=== PATIENT | male | born 1955 | race Caucasian/White ===

== ENCOUNTER 2017-02-13 13:06 | Day surgery (SDC) | payer OTHER ==
[~2017-02-13] VITALS: Ht 175.3 cm; Wt 90.9 kg
[~2017-02-13 13:06] MED LIST: ALBU2.5V4 INHALATION; ALBU8.5H2 INHALATION; CYCL10TA9 PO; CeFAZolin Inj 2 GM in IV Premix 1 EACH IV ONE; IBUP800T28 PO; LISI-567 PO; Lactated Ringer's 1,000 ML IV ONE; METO-272 PO; OMEP20CA11 PO; OXYC1TAB24 PO; SIMV80TA4 PO; TIOT4MIS5 IH; TRAM50TA2 PO
[2017-02-13] MEDS ORDERED: MeTOProlol 1 mg/mL 5 mL Inj ONE (13:07)
[2017-02-13] MEDS ORDERED: Propofol 10,000 mCg/mL 20 mL Inj ONE (13:07)
[2017-02-13] MEDS ORDERED: Dexamethasone 4 mg/mL Inj ONE (13:07)
[2017-02-13] MEDS ORDERED: fentaNYL-PF 50 mCg/mL 2 mL Inj ONE (13:07)
[2017-02-13] MEDS ORDERED: Ondansetron 2 mg/mL 2 mL Inj ONE (13:07)
[2017-02-13] MEDS ORDERED: CeFAZolin Inj 2 gm / 50mL D5W IV ONE (13:19)
[2017-02-13 13:36] VITALS: BP 156/84; PULSE 87; RESP 16; O2SAT 97
[2017-02-13] MEDS ORDERED: Bupivacaine-MPF 0.5% 30 mL Inj INFILTRATE ONE (16:10)
[2017-02-13] MEDS ORDERED: Lactated Ringer's 500 ML IV PRN (16:13)
[2017-02-13] MEDS ORDERED: Lactated Ringer's 1,000 ML IV SCH (16:13)
[2017-02-13] MEDS ORDERED: Ondansetron 2 mg/mL 2 mL Inj IVPUSH PRN (16:15)
[2017-02-13] MEDS ORDERED: HYDROmorphone 1 mg/mL Inj IVPUSH PRN (16:15)
[2017-02-13] MEDS ORDERED: Phenylephrine 10,000 mCg/mL Inj IVPUSH PRN (16:15)
[2017-02-13] MEDS ORDERED: fentaNYL-PF 50 mCg/mL 2 mL Inj IVPUSH PRN (16:15)
[2017-02-13] MEDS ORDERED: Atropine 0.4 mg/mL Inj IVPUSH PRN (16:15)
[2017-02-13] MEDS ORDERED: MetoCLOpramide 5 mg/mL 2 mL Inj IVPUSH PRN (16:15)
[2017-02-13] MEDS ORDERED: Labetalol 5 mg/mL 4 mL Inj IV PRN (16:15)
[2017-02-13] MEDS ORDERED: EPHEDrine Sulfate 50 mg/mL Inj IVPUSH PRN (16:15)
--- NOTE | 2017-02-13 16:15 | PCM.HPANE ---
Patient Data Surgeon Admitting Provider: Attending Provider:Viki Coffey MD Primary Care Physician:Nubia West Other Provider:Haseeb Bunn Anesthesia Reason for Visit Right Hydrocele Ht/WT & BMI Height (Feet): 5 Height (Inches): 9 Weight (Kilograms): 90.9 Body Mass Index 29.00 Allergies Coded Allergies: No Known Allergies (Verified Allergy, Unknown, 02/13/17) Past Anesthesia History Anesthesia History: Denies:: Abnormal Airway, Anesthesia Reactions, Difficult Intubation, Fam Anesthesia Reaction, Fam Malignant Hypertherm, Malignant Hyperthermia Diabetes History Hx Diabetes?: No MRSA MRSA: No Medications Hypertension Medication: Yes (LISINOPRIL) Home Meds Incl Beta Lluvia: Yes (METOPROLOL) Previous Beta Lluvia Dose >24: Previous Dose <24 Hours Reported Medications Albuterol HFA (Proair HFA)8.5 Gm Hfa.aer.ad2 Puffs INHALATION Q4H PRN PRN #1 INHALER 02/10/17 Tramadol 50 Mg Ycihpe21 Mg PO Q4H PRN For Pain Ref 0 02/10/17 Tiotropium Elizabeth (Spiriva Respimat)1.25 Mcg/Actuation Mist.inhal4 Gm IH DAILY 02/10/17 Simvastatin 80 Mg [id number] Mg PO HS 30 Days Ref 0 02/10/17 oxyCODONE-Acetaminophen 5-325 mg 1 Each Tablet1 Tab PO Q6H PRN For Pain Ref 0 02/10/17 Omeprazole 20 Mg Capsule.dr20 Mg PO DAILY Ref 0 02/10/17 Metoprolol Succinate ER 50 Mg Tab.er.24h50 Mg PO DAILY Ref 0 02/10/17 Lisinopril 20 Mg Cqwkzg83 Mg PO DAILY 30 Days Ref 0 02/10/17 Ibuprofen 800 Mg Ssrabm892 Mg PO TID PRN For Pain Ref 0 02/10/17 Cyclobenzaprine 10 Mg Ngmjwf08 Mg PO HS PRN Spasm Ref 0 02/10/17 Discontinued Reported Medications Albuterol Neb Soln 2.5 Mg/3 Ml Vial.neb2.5 Mg INHALATION Q4H PRN For Shortness of Breath Ref 0 02/10/17 History History of ENT Problems?: No HEENT History: Denies:: Abnormal Airway Cataracts Difficult Intubation Dysphagia Glaucoma Hearing Problem Sinus Problem TMJ Denture Type: None Teeth Condition: Within Normal Limits Hx of Heart Problems?: Yes Cardiovascular History: Positive for:: Cardiac Surgery (S/P HEART CATH W/O STENTING 2006) Chest Pain (05/2013 ?ETIOLOGY) Coronary Artery Disease (HX OR 2006) Hypertension (HYPERLIPIDEMIA) Denies:: Congestive Heart Failure Heart Murmur (MPS 11/2010 EF 78% WNL) Other Cardiac History: Denies recent CP/PINEDA Hx of Respiratory Problem?: Yes Respiratory History: Positive for:: Asthma Use of Inhalers / NEBS Denies:: Tuberculosis Use of C-PAP Machine Hx Neurologic Problems?: No Hx of GI Problems?: Yes Other GI Pertinent History: S/P RT INGUINAL HERNIA RPR Hx of Problems?: Yes Other Pertinent History: MICROSCOPIC HEMATURIA Male Hx: Positive for:: Scrotal Mass (RT HYDROCELE=CURRENT PROBLEM (DEVELOPED AFTER HERNIA RPR 2014)) Denies:: Prostate Problems Testicular Surgery Skin History: Denies:: History Skin Disorders? Pressure Ulcers Hx Musculoskeletal Problems?: Yes Musculoskeletal History: Denies:: Back Injury (C/OF BACK PAIN) Hx of Psycho/Social Problems?: No Hx Surgeries?: Yes (RT INGUINAL HERNIA RPR,MAURA FUNDOPLICATION,HEART CATH) Hx Any Other Health Problems?: Yes Other History: Positive for:: Hospitalization (CARDIAC) Denies:: Cancer Endocrine Disease Thyroid Disease Hx Diabetes: No Hx Alcohol Use: NoHx Substance Use: NoHave You Smoked inLast 12 mo: Yes Approx How Many Cigarettes/day: 8-10 C/DAY X 25YRS Stop/Bang S-Snoring: Do You Snore Loudly: No T-Tired: feel tired, fatigued: No O-Obsered: Observed not breath: No P-Blood Pressure: treated: Yes B- Body Mass Index > 35 kg/m2: No A- Age over 50: Yes N- Neck Large Circumference: No G- Gender Male: Yes KELLY Total Score: 3 KELLY Risk Assessment: High Risk, =/>3 Yes Risk Assessment Category Category 1A: Patient has history of documented sleep apnea, and HAS NOT received any narcotic, sedative or anesthesia administration during this stay. Category 1B: Patient has history of documented sleep apnea, and HAS received any narcotic , sedative or anesthesia administration during this stay Category 2: Patient has SUSPECTED Obstructive Sleep Apnea, and HAS received any narcotic , sedative or anesthesia administration during this stay. Category 3: Patient has SUSPECTED Obstructive Sleep Apnea and HAS NOT received narcotic, sedative or anesthesia administration during this stay. Category 4: Outpatient in Procedural Areas with known sleep apnea or who screen positive for High Risk via the STOP/BANG questionnaire. Exam Exam Vital Signs Vital Signs Date Time Temp Pulse Resp B/P Pulse Ox O2 Delivery O2 Flow Rate FiO2 02/13/17 13:36 37 87 16 156/84 97 Room Air General Appearance: Alert, Oriented X3, Cooperative, No Acute Distress HEENT/AIRWAY: MP 2 Lungs: Clear to Auscultation, Normal Air Movement Heart: Exam Unremarkable, Regular Rate/Rhythm, No Murmurs/Rubs/Gallops Meds/Labs/Diagnostics Admission Meds Current Medications Lactated Ringer's (Lr) 1,000 ml @ 120 mls/hr Q8H20M ONCE IV Last administered on 02/13/17t 13:36; Start 02/13/17 at 05:00; Stop 02/13/17 at 13:19; Status DC Plan Impression Patient chart reviewed, patient interviewed and anesthestic plan with risks, benefits, and alternatives discussed, and informed consent obtained. NPO per Anesth. Guidelines: Yes ASA Physical Status: ASA2 Mod Systemic Disease Anesthetic Plan: GA Bene/Risks/Altern/Consents: Yes HP Complete Prior to Induction: Yes Armand Nix MD Feb 13, 2017 13:59
[2017-02-13] MEDS ORDERED: Bacitracin Ointment Packet TOPICAL ONE (16:46)
[2017-02-13 16:55] VITALS: BP 157/97; PULSE 99; RESP 16; O2SAT 98
[2017-02-13] MEDS ORDERED: HYDROcodone-APAP 5-325 mg Tablet PO PRN (16:55)
--- NOTE | 2017-02-13 16:56 | PCM.ANEP1 ---
Post Anesthesia PACU Phase 1 Assessment Vital Signs VSS, see ARTIST AND REPERTOIRE MANAGER notes for VS Vital Signs Date Time Temp Pulse Resp B/P Pulse Ox O2 Delivery O2 Flow Rate FiO2 02/13/17 13:36 37 87 16 156/84 97 Room Air Anesthetic Administered: GA Level of Alertness: Awake, talking MILLS's with Equal Strength: Yes Pain: No Nausea or Vomiting: No CV Function & Hydration Stable: Yes Airway Device: Oxygen Delivery: Simple Mask Lungs: Clear to Auscultation, Normal Air Movement PACU Phase 2 Assessment Complications: No Follow up Care: N/A Patient Instructions Provided: N/A Armand Nix MD Feb 13, 2017 16:56
[2017-02-13 16:58] VITALS: BP 150/88; PULSE 89; RESP 14; O2SAT 96
[2017-02-13 17:06] VITALS: BP 144/90; PULSE 76; RESP 14; O2SAT 95
[2017-02-13 17:17] VITALS: BP 138/83; PULSE 71; RESP 16; O2SAT 95
[2017-02-13 17:35] VITALS: BP 129/84; PULSE 67; RESP 16; O2SAT 95
--- NOTE | 2017-02-14 01:47 | OP ---
[address] [address] OPERATIVE REPORT PATIENT: ZAK JOHNSON : 1955 MR#: [id number] ADMIT: 02/13/2017 JOB ID: [id number] DATE OF SURGERY: 02/13/2017 PREOPERATIVE DIAGNOSIS(ES): Right hydrocele. POSTOPERATIVE DIAGNOSIS(ES): Right hydrocele. PROCEDURE PERFORMED: Right hydrocelectomy. SURGEON: Viki Coffey MD. INSIDE PHONE SALES: None. FINDINGS: A 250 mL right hydrocele sac. ANESTHESIA: 1. General. 2. 0.5% bupivacaine plain locally to the incision. ESTIMATED BLOOD LOSS: Less than 10 mL. DRAINS: Quarter-inch Krista. SPECIMEN: Right hydrocele sac. COMPLICATION: None. CONDITION: Stable. INDICATION FOR PROCEDURE: The patient is a 61-year-old gentleman with a right hydrocele. He wishes to undergo a right hydrocelectomy. DESCRIPTION OF PROCEDURE: After informed consent was obtained, the patient was taken to the operating room. A time-out was performed, identifying correct patient, surgical site and procedure. General anesthesia was smoothly induced. He was placed in supine position and all pressure points were identified and appropriately padded. He was given intravenous antibiotics just prior to start of procedure. His genitals were then prepped and draped in a sterile fashion. A 3 cm incision was made along the midline raphae with a 15 blade. Dartos was incised with Bovie electrocautery. The layers of the hydrocele sac were then incised with Bovie electrocautery and the hydrocele sac and testicle delivered through the incision. The sac was incised and the fluid aspirated. It was straw-colored and clear, consistent with hydrocele fluid. The volume was 250 mL. The sac was then divided with Bovie electrocautery leaving a 1 cm margin. It was oversewn with 3-0 chromic in running fashion. The testicle was then replaced in the sac in orthotopic position. The Fosters drain was brought through the incision into the skin at the dependent aspect of the scrotum. Dartos was closed with 3-0 chromic in running fashion. The skin was closed with 3-0 chromic in running fashion as well. Bacitracin was placed over it. Gauze was placed under the patient's scrotum and supportive undergarments were placed to patient's genitals and buttocks. The patient was then reversed from general anesthesia and taken to PACU in good and stable condition. BLAS
--- NOTE | 2017-02-15 16:20 | PATH ---
SURGICAL PATHOLOGY Attending Physician:Viki Coffey, CASE STATUS: Signed Out PATIENT NAME: ZAK JOHNSON PID: [id number] : 1955 DATE COLLECTED:02/13/2017 00:00 SPECIMEN: Hydrocele CLINICAL HISTORY: RIGHT HYDROCELE 1). RIGHT HYDROCELE SAC FINAL DIAGNOSIS: 1.RIGHT HYDROCELE SAC, REMOVAL: BENIGN FIBROCONNECTIVE TISSUE, CONSISTENT WITH HYDROCELE SAC. ICD10 N43.3 GROSS DESCRIPTION: Received in formalin, labeled with the patient' s name and "right hydrocele sac", are two pink-nelson sac-like structures ranging in size from 3.0 x 0.8 x 0.3 cm to 7.0 x 2.0 x 1.0 cm. Card Punching Machine Operator sections are submitted in cassettes 1A and 1B. ([id number]) MICRO DESCRIPTION: See diagnosis. ICD-9 CODES: CPT CODES: 1: 36556 Electronically Signed Out Viki Salinas MD [facility] [address], [place] [address] Technical component performed at [facility], [facility] [address], [place], [address]
== END 2017-02-13 23:59 | disposition home or self-care (01) ==
LOC: SAS 13:06
PROVIDERS: ATTEND Urology
DX: N43.3 Hydrocele, unspecified (principal); I10 Essential (primary) hypertension; I25.10 Atherosclerotic heart disease of native coronary artery without angina pectoris; I25.2 Old myocardial infarction; E78.5 Hyperlipidemia, unspecified; J45.909 Unspecified asthma, uncomplicated; F17.210 Nicotine dependence, cigarettes, uncomplicated; Z95.5 Presence of coronary angioplasty implant and graft; Z79.51 Long term (current) use of inhaled steroids
CPT/HCPCS: 55040; J0690; J1100; J2405; J3010; J7120